=== PATIENT | male | born 1965 | race Caucasian/White ===

== ENCOUNTER 2024-09-05 13:00 | Emergency (ER) | payer MEDICAID ==
[~2024-09-05] VITALS: Ht 177.8 cm; Wt 91.0 kg
[2024-09-05 13:07] VITALS: O2SAT 98
[2024-09-05 13:08] VITALS: TEMP 36.7; O2SAT 99
[2024-09-05 14:09] LABS: CLARITY URINE CLEAR (CLEAR); COLOR URINE YELLOW (YELLOW); GLUCOSE URINE NEGATIVE (NEGATIVE); KETONES URINE NEGATIVE (NEGATIVE); NITRITE URINE NEGATIVE (NEGATIVE); OCCULT BLOOD URINE NEGATIVE (NEGATIVE); PH URINE 5.5 (4.5-8.0); PROTEIN URINE NEGATIVE (NEGATIVE); SPECIFIC GRAVITY URINE 1.020 (1.005-1.030); UROBILINOGEN URINE 0.2 E.U./dL (0.2-1.0)
[2024-09-05 14:10] LABS: LEUKOCYTE ESTERASE URINE NEGATIVE (NEGATIVE)
[2024-09-05 15:29] VITALS: BP 167/98; PULSE 54; RESP 12
== END 2024-09-05 15:31 | disposition home or self-care (01) ==
LOC: ER 13:00
DX: R30.9 Painful micturition, unspecified (principal); Z90.49 Acquired absence of other specified parts of digestive tract; Z79.899 Other long term (current) drug therapy
CPT/HCPCS: 81003; 99283